=== PATIENT | female | born 1970 | race American Indian/Alaskan Native ===

== ENCOUNTER 2016-10-24 15:26 | Emergency (ER) | payer SELFPAY ==
[2016-10-24 16:34] VITALS: BP 157/101
--- NOTE | 2016-10-24 22:04 | Emergency Department Report ---
ED General Adult HPI - General Chief complaint: Medical Clearance Stated complaint: HBP Time Seen by Provider: 10/24/16 21:10 Source: patient Mode of arrival: Ambulatory Limitations: No Limitations - History of Present Illness Initial comments: This is a 46-year-old female well-nourished with nontoxic or ill in appearance that presents here today for a medication refill. Patient stated she does not have a job with no insurance. Denies private care doctor. Patient stated takes Triamter/Hctz 75-50 mg PO daily for blood pressure. Patient stated is running out of pills and only has 2 left. Patient denies any headache, blurred vision, chest pain, shortness of breath, numbness or tingling, abdominal pain, nausea vomiting. Patient stated she feels great with no acute signs of distress. Patient states allergies to Toradol. MD Complaint: medication refill Associated Symptoms: denies other symptoms. denies: confusion, chest pain, cough, diaphoresis, fever/chills, headaches, loss of appetite, malaise, nausea/ vomiting, rash, seizure, shortness of breath, syncope, weakness - Related Data Previous Rx's Medication Instructions Recorded Last Taken Type Triamter/Hctz 75-50 mg [Maxzide 1 tab PO QDAY #30 tablet 03/26/15 07/05/16 08: 00 Rx 75-50 mg] Triamter/Hctz 75-50 mg [Maxzide 1 tab PO QDAY #30 tablet 07/08/16 Unknown Rx 75-50 mg] Triamter/Hctz 75-50 mg [Maxzide 1 tab PO QDAY #30 tablet 10/24/16 Unknown Rx 75-50 mg] Allergies Allergy/AdvReac Type Severity Reaction Status Date / Time ketorolac tromethamine Allergy Vomiting Verified 07/08/16 10:27 [From Toradol] ED Review of Systems ROS: Stated complaint: HBP Other details as noted in HPI Constitutional: denies: chills, fever Eyes: denies: eye pain, eye discharge, vision change ENT: denies: ear pain, throat pain Respiratory: denies: cough, shortness of breath, wheezing Cardiovascular: denies: chest pain, palpitations Endocrine: no symptoms reported Gastrointestinal: denies: abdominal pain, nausea, diarrhea Genitourinary: denies: urgency, dysuria, discharge Musculoskeletal: denies: back pain, joint swelling, arthralgia Skin: denies: rash, lesions Neurological: denies: headache, weakness, paresthesias Psychiatric: denies: anxiety, depression Hematological/Lymphatic: denies: easy bleeding, easy bruising ED Past Medical Hx - Past Medical History Hx Hypertension: Yes Hx Arthritis: Yes Hx Asthma: Yes Additional medical history: SCIATICA - Surgical History Past Surgical History?: Yes Additional Surgical History: hysterectomy l) knee surg - Social History Smoking Status: Never Smoker Substance Use Type: None - Medications Home Medications: Home Medications Medication Instructions Recorded Confirmed Last Taken Type Triamter/Hctz 75-50 mg [Maxzide 1 tab PO QDAY #30 tablet 03/26/15 07/08/1607/05 08:00 Rx 75-50 mg] Triamter/Hctz 75-50 mg [Maxzide 1 tab PO QDAY #30 tablet 07/08/16 Unknown Rx 75-50 mg] Triamter/Hctz 75-50 mg [Maxzide 1 tab PO QDAY #30 tablet 10/24/16 Unknown Rx 75-50 mg] ED Physical Exam - General Limitations: No Limitations General appearance: alert, in no apparent distress - Head Head exam: Present: atraumatic, normocephalic - Eye Eye exam: Present: normal appearance, PERRL, EOMI Pupils: Present: normal accommodation - ENT ENT exam: Present: normal exam, normal orophraynx, mucous membranes moist, TM's normal bilaterally - Neck Neck exam: Present: normal inspection - Respiratory Respiratory exam: Present: normal lung sounds bilaterally. Absent: respiratory distress - Cardiovascular Cardiovascular Exam: Present: regular rate, normal rhythm. Absent: systolic murmur, diastolic murmur, rubs, gallop - GI/Abdominal GI/Abdominal exam: Present: soft, normal bowel sounds. Absent: distended, tenderness - Extremities Exam Extremities exam: Present: normal inspection, full ROM, normal capillary refill. Absent: tenderness, pedal edema, joint swelling, calf tenderness - Back Exam Back exam: Present: normal inspection, full ROM. Absent: tenderness, CVA tenderness (R), CVA tenderness (L), muscle spasm, paraspinal tenderness, vertebral tenderness, rash noted - Neurological Exam Neurological exam: Present: alert, oriented X3, CN II-XII intact, normal gait - Psychiatric Psychiatric exam: Present: normal affect, normal mood - Skin Skin exam: Present: warm, dry, intact, normal color. Absent: rash ED Course Vital Signs 10/24/16 16:27 Temperature 98.4 F Pulse Rate 67 Respiratory 18 Rate Blood Pressure 157/101 O2 Sat by Pulse 99 Oximetry ED Medical Decision Making - Medical Decision Making ED course: This is a 46-year-old female that presents with medication refill. 1- Patient recevied Maxzide 75-50 mg Po daily refill. 2- patient was referred to primary care doctor and was instructed to follow-up with her primary care doctor in 3-5 days. 3- at time time of discharge, the patient does not seem toxic or ill in appearance. No acute signs of distress noted. Patient agrees to discharge treatment plan of care. No further questions noted by the patient. Critical care attestation.: If time is entered above; I have spent that time in minutes in the direct care of this critically ill patient, excluding procedure time. 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 Prescriptions: Triamter/Hctz 75-50 mg [Maxzide 75-50 mg] 1 tab PO QDAY #30 tablet Referrals: PRIMARY CAREMD [Primary Care Provider] - 3-5 Days REGGIE LEWIS JR, MD [Staff Physician] - 3-5 Days [facility] [Outside] - 3-5 Days [facility] [Outside] - 3-5 Days LOYD RENDON MD [Staff Physician] - 3-5 Days Forms: Work/School Release Form(ED)
== END 2016-10-24 22:17 | disposition home or self-care (01) ==
LOC: ED 15:26
DX: Z76.0 Encounter for issue of repeat prescription (principal); M19.90 Unspecified osteoarthritis, unspecified site; J45.909 Unspecified asthma, uncomplicated; Z88.8 Allergy status to other drugs, medicaments and biological substances
CPT/HCPCS: 99282

== ENCOUNTER 2017-02-18 06:21 | Emergency (ER) | payer OTHER ==
[2017-02-18 07:32] LABS: Basophils % (Auto) 0.9 % (0.0-1.8); Eosinophils % (Auto) 5.2 % (0.0-4.3); Hematocrit 40.5 % (30.3-42.9); Hemoglobin 13.2 gm/dl (10.1-14.3); Mean Corpuscular HGB Conc 33 % (30-34); Mean Corpuscular Hemoglobin 27 pg (28-32); Mean Corpuscular Volume 81 fl (79-97); Platelet Count 207 K/mm3 (140-440); Red Blood Count 4.99 M/mm3 (3.65-5.03); Red Cell Distribution Width 14.4 % (13.2-15.2); White Blood Count 5.9 K/mm3 (4.5-11.0)
[2017-02-18 07:47] LABS: Anion Gap 15 mmol/L; Blood Urea Nitrogen 10 mg/dL (7-17); Calcium 8.7 mg/dL (8.4-10.2); Carbon Dioxide 27 mmol/L (22-30); Chloride 101.3 mmol/L (98-107); Glucose 112 mg/dL (65-100); Potassium 3.5 mmol/L (3.6-5.0); Sodium 140 mmol/L (137-145)
[2017-02-18] MEDS ORDERED: PROVENTIL IH ONE ×2 (08:30→10:22)
[2017-02-18] MEDS ORDERED: MAGNESIUM SULFATE 2GM/50ML 2 GM/50 ML BAG IV ONE (08:30)
[2017-02-18] MEDS ORDERED: ATROVENT IH ONE ×3 (08:40→10:22)
--- NOTE | 2017-02-18 09:17 | XRay Report ---
Chest 2 views: History: Shortness of breath. Findings: Heart size is upper limit of normal. Trachea is midline. No consolidation, pneumothorax or pleural effusion. Impression: No acute cardiopulmonary findings.
--- NOTE | 2017-02-18 10:27 | Emergency Department Report ---
HPI - General Chief Complaint: Dyspnea/Respdistress Time Seen by Provider: 02/18/17 10:17 - HPI HPI: Room 22 The patient is a 47-year-old female presenting with a chief complaint of asthma attack. The patient states he developed right facial pressure consistent with previous sinus infections 4 days ago. The patient states last night she developed an asthma attack which included shortness of breath and wheezing. Patient denies rhinorrhea vitamins to cough occasionally productive of yellow sputum for the past 4 days. Patient admits to bodyaches and a subjective fever. Patient denies any sick contacts at home. The patient received 1 neb treatment prior to my evaluation she currently denies shortness of breath but still feels as though she is wheezing Location: Lungs, face Duration: 4 days Quality: Pressure, wheezing Severity: Moderate Modifying factors: [see above] Context: [see above] Mode of transportation: Unknown ED Past Medical Hx - Past Medical History Hx Hypertension: Yes Hx Arthritis: Yes Hx Asthma: Yes Additional medical history: SCIATICA - Surgical History Past Surgical History?: No Additional Surgical History: hysterectomy l) knee surg - Family History Family history: no significant - Social History Smoking Status: Never Smoker Substance Use Type: None (denies illicit drug use), Alcohol (rarely) - Medications Home Medications: Home Medications Medication Instructions Recorded Confirmed Last Taken Type Triamter/Hctz 75-50 mg [Maxzide 1 tab PO QDAY #30 tablet 03/26/15 07/08/1607/05 08:00 Rx 75-50 mg] Triamter/Hctz 75-50 mg [Maxzide 1 tab PO QDAY #30 tablet 07/08/16 Unknown Rx 75-50 mg] Triamter/Hctz 75-50 mg [Maxzide 1 tab PO QDAY #30 tablet 10/24/16 Unknown Rx 75-50 mg] ALBUTEROL Inhaler [Proair] 2 puff IH QID PRN #1 inhalation 02/18/17 Unknown Rx Azithromycin [Zithromax Z-DANIELA] 0 mg PO DAILY #6 tab 02/18/17 Unknown Rx Benzonatate [Tessalon Perles] 100 mg PO Q8HR #30 capsule 02/18/17 Unknown Rx Prednisone [predniSONE 10 mg 10 mg PO .TAPER #1 tab.ds.pk 02/18/17 Unknown Rx (6-Day Pack, 21 Tabs)] ED Review of Systems ROS: Stated complaint: ASTHMA Other details as noted in HPI Comment: All other systems reviewed and negative Constitutional: fever (subjective) Eyes: denies: eye pain, eye discharge, vision change ENT: congestion, other (facial pressure) Respiratory: cough, shortness of breath, wheezing Cardiovascular: denies: chest pain, palpitations Endocrine: no symptoms reported Gastrointestinal: denies: abdominal pain, nausea, diarrhea Genitourinary: denies: urgency, dysuria, discharge Musculoskeletal: myalgia Skin: denies: rash, lesions Neurological: denies: headache, weakness, paresthesias Psychiatric: denies: anxiety, depression Hematological/Lymphatic: denies: easy bleeding, easy bruising Physical Exam - Physical Exam Vital Signs: Vital Signs 02/18/17 02/18/17 02/18/17 06:32 07:08 08:39 Temperature 98.5 F 98.5 F Pulse Rate 92 H 79 Pulse Rate [ 76 Anterior Bilateral Throughout] Respiratory 18 Rate Respiratory 18 Rate [Anterior Bilateral Throughout] Blood Pressure 144/92 140/89 O2 Sat by Pulse 93 95 Oximetry Physical Exam: GENERAL: The patient is well-developed well-nourished female sitting on a stretcher not appearing to be in acute distress. [] HEENT: Normocephalic. Atraumatic. Extraocular motions are intact. Patient has moist mucous membranes. There is tenderness to percussion of the right maxillary sinus NECK: Supple. Trachea midline CHEST/LUNGS: Diffuse inspiratory and expiratory wheezes. There is no respiratory distress noted. HEART/CARDIOVASCULAR: Regular. There is no tachycardia. There is no gallop rub or murmur. ABDOMEN: Abdomen is soft, nontender. Patient has normal bowel sounds. There is no abdominal distention. SKIN: There is no rash. There is no edema. There is no diaphoresis. NEURO: The patient is awake, alert, and oriented. The patient is cooperative. The patient has normal speech MUSCULOSKELETAL: There is no evidence of acute injury. ED Course Vital Signs 02/18/17 02/18/17 02/18/17 06:32 07:08 08:39 Temperature 98.5 F 98.5 F Pulse Rate 92 H 79 Pulse Rate [ 76 Anterior Bilateral Throughout] Respiratory 18 Rate Respiratory 18 Rate [Anterior Bilateral Throughout] Blood Pressure 144/92 140/89 O2 Sat by Pulse 93 95 Oximetry - Reevaluation(s) Reevaluation #1: 02/18/17 11:51 Patient much improved. No wheezing ED Medical Decision Making - Lab Data Result diagrams: 02/18/17 07:15 02/18/17 07:15 Laboratory Tests 02/18/17 02/18/17 07:15 07:15 WBC 5.9 RBC 4.99 Hgb 13.2 Hct 40.5 MCV 81 MCH 27 L MCHC 33 RDW 14.4 Plt Count 207 Lymph % (Auto) 19.3 [place] % (Auto) 8.0 H Eos % (Auto) 5.2 H Baso % (Auto) 0.9 Lymph # 1.1 L [place] # 0.5 Eos # 0.3 Baso # 0.1 Seg Neutrophils % 66.6 Seg Neutrophils # 3.9 Sodium 140 Potassium 3.5 L Chloride 101.3 Carbon Dioxide 27 Anion Gap 15 BUN 10 Creatinine 0.8 Estimated GFR > 60 BUN/Creatinine Ratio 12.50 Glucose 112 H Calcium 8.7 - EKG Data -: EKG Interpreted by Me EKG shows normal: sinus rhythm Rate: normal - EKG Data When compared to previous EKG there are: previous EKG unavailable Interpretation: other (no ischemic changes seen) - Radiology Data Radiology results: image reviewed (chest x-ray) interpreted by me: Chest x-ray-no focal infiltrates, pneumothorax - Differential Diagnosis acute asthma exacerbation, sinusitis, pneumonia Critical care attestation.: If time is entered above; I have spent that time in minutes in the direct care of this critically ill patient, excluding procedure time. ED Disposition Clinical Impression: Acute asthma exacerbation, Shortness of breath, Sinusitis Disposition: - TO HOME OR SELFCARE Is pt being admited?: No Does the pt Need Aspirin: No Condition: Stable Instructions: Asthma (ED) Additional Instructions: Return to the emergency department immediately should you develop worsening symptoms, fever, inability to tolerate food or liquid or any other concerns. Prescriptions: ALBUTEROL Inhaler [Proair] 2 puff IH QID PRN #1 inhalation PRN Reason: Shortness Of Breath Azithromycin [Zithromax Z-DANIELA] 0 mg PO DAILY #6 tab Benzonatate [Tessalon Perles] 100 mg PO Q8HR #30 capsule Prednisone [predniSONE 10 mg (6-Day Pack, 21 Tabs)] 10 mg PO .TAPER #1 tab.ds.pk Referrals: SATCHER,SANTHOSH, MD [Staff Physician] - 3-5 Days (Dr. Breaux is a primary physician. Please follow up with him to be established as a patient) HAZEL MCNEILL MD [Staff Physician] - 3-5 Days (Dr. 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 Please follow up with her for further evaluation) Time of Disposition: 11:52
[2017-02-18 12:15] VITALS: BP 118/76
== END 2017-02-18 12:22 | disposition home or self-care (01) ==
LOC: ED 06:21
DX: J45.901 Unspecified asthma with (acute) exacerbation (principal); J32.0 Chronic maxillary sinusitis; I10 Essential (primary) hypertension; M19.90 Unspecified osteoarthritis, unspecified site
CPT/HCPCS: 36415; 71020; 80048; 85025; 93005; 93010; 94644; 96365; 96375; 99284; J2930; J3475

== ENCOUNTER 2020-07-12 20:54 | Emergency (ER) | payer SELFPAY | END 2020-07-12 21:25 | disposition left against medical advice (07) | LOC: ED 20:54 | DX: F41.0 Panic disorder [episodic paroxysmal anxiety] (principal); Z53.21 Procedure and treatment not carried out due to patient leaving prior to being seen by health care provider ==